=== PATIENT | female | born 1995 | race Caucasian/White ===

== ENCOUNTER 2020-03-23 16:25 | Emergency (ER) | payer OTHER, SELFPAY ==
--- NOTE | 2020-03-23 16:37 | ED.URI ---
HPI - URI/Sore Throat General Chief Complaint: Upper Respiratory Infection Stated Complaint: Sore throat Time Seen by Provider: 03/23/20 16:51 Source: patient and RN notes reviewed Mode of arrival: ambulatory Limitations: no limitations History of Present Illness HPI Narrative: 24-year-old female presents with concern for sore throat since Sunday. Reports low-grade fever. Denies nausea, headache, rhinorrhea, nasal congestion, cough, shortness of breath. Denies any sick contacts. MD elicited complaint: sore throat Related Data Home Medications Medication Instructions Recorded Confirmed norethindrone-e.estradiol-iron [Lo 1 tablet PO DAILY 03/23/20 03/23/20 Loestrin Fe] spironolactone 100 mg PO DAILY 03/23/20 03/23/20 Allergies Allergy/AdvReac Type Severity Reaction Status Date / Time No Known Allergies Allergy Verified 06/02/19 10:00 Review of Systems Review of Systems: Narrative: CONSTITUTIONAL: Denies malaise, chills, sweats. Reports low-grade fever. EYES: Denies visual changes, redness, or discharge. ENT: Reports rhinorrhea, congestion, sinus pain, otalgia. Reports sore throat. CARDIOVASCULAR: Denies chest pain, palpitations, or edema. RESPIRATORY: Denies cough or dyspnea. GASTROINTESTINAL: Denies abdominal pain, nausea, vomiting, diarrhea SKIN: Denies rash or itching. MUSCULOSKELETAL: Denies myalgia. NEUROLOGIC: Denies headache. All systems reviewed & are unremarkable except as noted in HPI and below PMFSH Comments At time of signature, agree with nursing past medical, surgical, social and family history. There is no relevant family history pertinent to the presenting complaint Exam Narrative: Exam Narrative: GENERAL: Well-appearing, well-nourished, and in no acute distress. HEAD: Normocephalic EYES: PERRLA, conjunctivae clear ENT: Nares clear, turbinates edematous and erythematous, clear discharge. Mucous membranes moist. TM pearly miller with dull light reflex bilaterally; no tragal tenderness. Oropharynx erythematous without lesions. Tonsils enlarged and without exudate, no drooling, no hoarseness, no trismus, uvula midline. NECK: Supple. No lymphadenopathy CHEST: Clear to auscultation, breath sounds equal. No wheezing, rhonchi, rales, or stridor. No respiratory distress, speaks in full sentences. HEART: Regular rate and rhythm. No murmur heard. SKIN: Warm, dry, no rash. NEURO: Alert and oriented x3. PSYCH: Normal mood and affect Course Course Emergency Course: Patient is aware of diagnosis, understands and agrees to treatment plan. Anticipatory guidance given. Patient agrees to follow-up as directed and is aware of reasons to seek care at the emergency department. Portions of this record may have been created with voice recognition software Vital Signs Vital signs: Reviewed. MDM - URI/Sore Throat MDM Narrative Medical decision making narrative: Differential diagnosis considered: Ontiveros virus, strep pharyngitis, allergic rhinitis, upper respiratory tract infection, sinusitis, rhinosinusitis, nasopharyngitis. viral pharyngitis, otitis media, otitis externa, pneumonia, bronchitis, viral cough syndrome, viral syndrome, and influenza. Exam findings show no acute concerns or changes; patient is non-toxic appearing and is in no distress. Patient is appropriate for outpatient treatment and follow-up. Lab Data Attestation: I reviewed the patient's lab results. Critical Care Time Critical Care Time Critical Care Time: No Discharge Plan Discharge Clinical Impression: Pharyngitis Qualifiers: Pharyngitis/tonsillitis etiology: unspecified etiology Qualified Code(s): J02.9 - Acute pharyngitis, unspecified Patient Disposition: Home, Self-Care Condition: Stable Instructions: Pharyngitis (ED), COVID-19: Slow the Coronavirus Spread (ED) Additional Instructions: An order has been sent to [facility] for COVID-19 testing. You will receive a phone call to schedule the testing. Results are usually
[2020-03-23 16:38] VITALS: BP 123/75; PULSE 89; RESP 16; TEMP 37.4; O2SAT 100
== END 2020-03-23 16:56 | disposition home or self-care (01) ==
PROVIDERS: Emergency Provider Nurse Practitioner; PCP Family Medicine
DX: J02.9 Acute pharyngitis, unspecified (principal); Z20.828 Contact with and (suspected) exposure to other viral communicable diseases
CPT/HCPCS: 87081; 87880; 99213; G0463

== ENCOUNTER 2021-05-16 08:14 | Emergency (ER) | payer OTHER, SELFPAY ==
[2021-05-16 08:23] VITALS: BP 110/79; PULSE 86; RESP 16; TEMP 37.1; O2SAT 100
--- NOTE | 2021-05-16 08:49 | ED.URI ---
HPI - URI/Sore Throat General Chief Complaint: Upper Respiratory Infection Stated Complaint: Sore throat,Ear Pain Time Seen by Provider: 05/16/21 08:42 Source: patient and RN notes reviewed Mode of arrival: ambulatory Limitations: no limitations History of Present Illness HPI Narrative: Patient presents today complaining of sore throat and left ear pain since yesterday evening. Denies any additional symptoms to include cough, rhinorrhea, congestion. She currently rates her pain 8/10 and has been taking Tylenol without relief. Pain increases with swallowing. MD elicited complaint: sore throat Related Data Home Medications Medication Instructions Recorded Confirmed norethindrone-e.estradiol-iron [Lo 1 tablet PO DAILY 03/23/20 05/16/21 Loestrin Fe] spironolactone 100 mg PO DAILY 03/23/20 05/16/21 tretinoin TOPICAL 05/16/21 05/16/21 Allergies Allergy/AdvReac Type Severity Reaction Status Date / Time No Known Allergies Allergy Verified 05/16/21 08:46 Review of Systems Review of Systems: CONSTITUTIONAL: Denies body aches, fever, chills, or sweats. EYES: Denies visual changes, redness, or discharge. ENT: Denies rhinorrhea, congestion. + Left ear pain, sore throat CARDIOVASCULAR: Denies chest pain, palpitations, or edema. RESPIRATORY: Denies cough or dyspnea. GASTROINTESTINAL: Denies abdominal pain, nausea, vomiting, or diarrhea. GENITOURINARY: Denies dysuria or hematuria. SKIN: Denies rash, itching, or wounds. MUSCULOSKELETAL: Denies back pain, joint pain, or myalgia. NEUROLOGIC: Denies headache, numbness, tingling, or weakness. PSYCH: Denies depression or anxiety. PMFSH Comments At time of signature, I have reviewed and agree with nursing past medical, surgical, social and family history unless otherwise noted. Please see nursing chart for further information. There is no relevant family history pertinent to the presenting complaint Exam Narrative: GENERAL: Well-appearing, well-nourished, and in no acute distress. HEAD: Normocephalic, atraumatic. EYES: EOMI. No redness or drainage. Conjunctivae normal. ENT: Mucous membranes pink and moist. Nares clear. No rhinorrhea. TMs normal bilaterally. Throat erythematous with mild edema. No exudate. Uvula midline. NECK: Normal AROM. Supple. No lymphadenopathy. CHEST: No respiratory distress. Clear to auscultation. HEART: Regular rate and rhythm. No murmur appreciated. Normal peripheral pulses. EXTREMITIES: Normal range of motion. No edema. SKIN: Warm, dry, no rash. Capillary refill normal. Normal skin turgor. NEURO: No focal deficits. Alert and oriented x3. Gait steady. PSYCH: Normal affect. No signs of depression or anxiety. Course Vital Signs Vital signs: Vital Signs Temperature 98.7 F 05/16/21 08:23 Pulse Rate 86 05/16/21 08:23 Respiratory Rate 16 05/16/21 08:23 Blood Pressure 110/79 05/16/21 08:23 Pulse Oximetry 100 05/16/21 08:23 Temperature 98.7 F 05/16/21 08:23 Pulse Rate 86 05/16/21 08:23 Respiratory Rate 16 05/16/21 08:23 Blood Pressure 110/79 05/16/21 08:23 Pulse Oximetry 100 05/16/21 08:23 Reviewed MDM - URI/Sore Throat Differential Diagnosis Differential diagnosis: Likely upper respiratory infection, otitis media, viral infection, pharyngitis and other (Strep throat) Lab Data Attestation: I reviewed the patient's lab results. Labs: Strep Screen Presumptive Negative *(Reference Range: Negative)* Strep Screen Presumptive Negative *(Reference Range: Negative)* Critical Care Time Critical Care Time Critical Care Time: No Discharge Plan Discharge Clinical Impression: Pharyngitis Qualifiers: Pharyngitis/tonsillitis etiology: unspecified etiology Qualified Code(s): J02.9 - Acute pharyngitis, unspecified Patient Disposition: Home, Self-Care Condition: Stable Instructions: Pharyngit
== END 2021-05-16 09:00 | disposition home or self-care (01) ==
PROVIDERS: Emergency Provider Nurse Practitioner
DX: J02.9 Acute pharyngitis, unspecified (principal)
CPT/HCPCS: 87081; 87880; 99213; G0463

== ENCOUNTER 2021-05-18 08:17 | Emergency (ER) | payer OTHER, SELFPAY ==
[2021-05-18 08:24] VITALS: BP 118/69; PULSE 89; RESP 16; TEMP 36.7; O2SAT 100
--- NOTE | 2021-05-18 08:56 | ED.URI ---
HPI - URI/Sore Throat General Chief Complaint: Upper Respiratory Infection Stated Complaint: ear pain/ sore throat Time Seen by Provider: 05/18/21 08:55 Source: patient and RN notes reviewed Mode of arrival: ambulatory Limitations: no limitations History of Present Illness HPI Narrative: Rona is a 25-year-old female patient who ambulated into the [facility]. Patient was seen here on 05/15/2021. A rapid strep was negative and a throat culture was sent off. The throat culture came back negative. Patient states she was having increased left ear and left throat pain since last night. She has been taking Motrin 600 mg 3 times daily. Patient states the pain is a 6 out of a 10. MD elicited complaint: sore throat Related Data Home Medications Medication Instructions Recorded Confirmed norethindrone-e.estradiol-iron [Lo 1 tablet PO DAILY 03/23/20 05/18/21 Loestrin Fe] spironolactone 100 mg PO DAILY 03/23/20 05/18/21 tretinoin 1 applic TOPICAL DAILY 05/16/21 05/18/21 Allergies Allergy/AdvReac Type Severity Reaction Status Date / Time No Known Allergies Allergy Verified 05/16/21 08:46 Review of Systems Review of Systems: CONSTITUTIONAL: Denies body aches, fever, chills, or sweats. EYES: Denies visual changes, redness, or discharge. ENT: +rhinorrhea, + congestion, + sore throat, + otalgia. CARDIOVASCULAR: Denies chest pain, palpitations, or edema. RESPIRATORY: Denies cough or dyspnea. GASTROINTESTINAL: Denies abdominal pain, nausea, vomiting, or diarrhea. GENITOURINARY: Denies dysuria or hematuria. SKIN: Denies rash, itching, or wounds. MUSCULOSKELETAL: Denies back pain, joint pain, or myalgia. NEUROLOGIC: Denies headache, numbness, tingling, or weakness. PSYCH: Denies depression or anxiety. All systems reviewed & are unremarkable except as noted in HPI and below PMFSH Comments At time of signature, I have reviewed and agree with nursing past medical, surgical, social and family history unless otherwise noted. Please see nursing chart for further information. There is no relevant family history pertinent to the presenting complaint Exam Narrative: GENERAL: Well-appearing, well-nourished, and in no acute distress. HEAD: Normocephalic, atraumatic. EYES: EOMI. No redness or drainage. Conjunctivae normal. ENT: Mucous membranes pink and moist. Nasal membranes pale . Bilateral tympanic membranes are bulging with fluid, no erythema noted. Posterior pharynx is erythemic with mild edema and no exudate. Left tonsil is 3-4+. Right tonsil is normal Throat normal. Uvula midline. NECK: Normal AROM. Supple. Left anterior cervical lymphadenopathy. CHEST: No respiratory distress. Clear to auscultation. MUSCULOSKELETAL: No bony tenderness. EXTREMITIES: Normal range of motion. No edema. SKIN: Warm, dry, no rash. Capillary refill normal. Normal skin turgor. NEURO: No focal deficits. Alert and oriented x3. Gait steady. PSYCH: Normal affect. No signs of depression or anxiety. Course Vital Signs Vital signs: Vital Signs Temperature 36.7 C 05/18/21 08:24 Pulse Rate 89 05/18/21 08:24 Respiratory Rate 16 05/18/21 08:24 Blood Pressure 118/69 05/18/21 08:24 Pulse Oximetry 100 05/18/21 08:24 Temperature 36.7 C 05/18/21 08:24 Pulse Rate 89 05/18/21 08:24 Respiratory Rate 16 05/18/21 08:24 Blood Pressure 118/69 05/18/21 08:24 Pulse Oximetry 100 05/18/21 08:24 Reviewed MDM - URI/Sore Throat MDM Narrative Medical decision making narrative: Patient's rapid strep is negative. Patient's throat culture from Sunday was also negative. Patient will be treated with prednisone to treat the inflammation. Patient will add Zyrtec daily. Patient will continue the ibuprofen 600 mg 3 times daily. Patient will follow up with her primary care physician in 3 to 5 days Differential Diagnosis Differential diagnosis: Likely upper respiratory infection, viral infection, bronchitis and pharyng
== END 2021-05-18 09:10 | disposition home or self-care (01) ==
PROVIDERS: Emergency Provider Nurse Practitioner Family
DX: J02.9 Acute pharyngitis, unspecified (principal)
CPT/HCPCS: 99213; G0463

== ENCOUNTER 2022-09-27 10:41 | Emergency (ER) | payer OTHER, SELFPAY ==
--- NOTE | 2022-09-27 10:47 | ED.URI ---
HPI - URI/Sore Throat General Chief Complaint: Upper Respiratory Infection Stated Complaint: sore throat Time Seen by Provider: 09/27/22 11:10 Source: patient Mode of arrival: ambulatory Limitations: no limitations History of Present Illness HPI Narrative: Susanne is a 26-year-old female patient presenting to clinic today with complaints of sore throat, sinus congestion, cough, and ear pain times 1 week. She was seen 5 days ago and was given prescription for amoxicillin. States that they did a COVID and a strep test and they were negative at that time. She has taken 5 days of amoxicillin. She denies any fever, chills, shortness of breath, or chest pain MD elicited complaint: sore throat, nasal congestion and other (Ear pain) Related Data Home Medications Medication Instructions Recorded Confirmed nitrofurantoin 09/27/22 09/27/22 monohydrate/macrocrystals 100 mg capsule vitamin with calcium tablet 09/27/22 09/27/22 no.72-iron 27 mg-folic acid 1 mg tablet (M- Plus) Allergies Allergy/AdvReac Type Severity Reaction Status Date / Time No Known Allergies Allergy Verified 09/27/22 10:58 Review of Systems Review of Systems: Pertinent positives per HPI. Patient denies any fever, chills, rash, headache, visual changes, dizziness, cough, shortness of breath, chest pain, palpitations, nausea, vomiting, diarrhea, constipation, abdominal pain, or any urinary issues. PMFSH Comments At the time of my signature, I reviewed and agree with the nursing past medical, surgical, social, and family history. There is no relevant family history pertinent to the patient complaint. Exam Narrative: General: Well-developed, well nourished, in no apparent distress Head: Normocephalic, atraumatic Eyes: Pupils equally round and reactive to light bilaterally, EOM intact, sclera and conjunctive clear, no discharge, lids normal Ears: TMs intact and clear, ear canals clear, no drainage, grossly hearing normal. Nose: Nares patent, no discharge, no inflammation, no sinus tenderness. Mouth: Oral pharynx without lesions or masses, good dentition, MMM. Neck: Supple, trachea midline, no enlargement of anterior or posterior cervical nodes, no thyroid masses or goiter palpable. Cardio: Regular rate and rhythm, s1 and s2 normal, no murmur appreciated. Resp: Clear to auscultation bilaterally, no rhonchi, rales, wheezing or rubs Course Course Emergency Course: Portions of this record may have been created with voice recognition software. Level of Care: Express Care Visit Vital Signs Vital signs: Vital Signs Temperature 37.1 C 09/27/22 11:01 Pulse Rate 116 H 09/27/22 11:01 Respiratory Rate 16 09/27/22 11:01 Blood Pressure 108/71 09/27/22 11:01 Pulse Oximetry 100 09/27/22 11:01 Oxygen Delivery Room Air 09/27/22 11:01 Temperature 37.1 C 09/27/22 11:01 Pulse Rate 116 H 09/27/22 11:01 Respiratory Rate 16 09/27/22 11:01 Blood Pressure 108/71 09/27/22 11:01 Pulse Oximetry 100 09/27/22 11:01 Oxygen Delivery Room Air 09/27/22 11:01 Vital signs reviewed MDM - URI/Sore Throat MDM Narrative Medical decision making narrative: At the time of visit patient is resting comfortably on the exam table. I suspect the patient has URI/pharyngitis. Will send in prescription for some prednisone to help with the sinus pressure and congestion. Supportive measures were discussed with the patient she voiced understanding discharge instructions and agrees to treatment plan. Differential Diagnosis Differential diagnosis: Likely upper respiratory infection, otitis media, sinusitis, viral infection, bronchitis, influenza, pharyngitis and other (COVID) Lab Data Labs: Lab Results 09/27/22 Range/Units 10:50 POC SARS CoV-2 Ag Negative (Negative) Strep Screen Presumptive Negative *(Reference Range: Negative)* Discharge Plan
[2022-09-27 11:01] VITALS: BP 108/71; PULSE 116; RESP 16; TEMP 37.1; O2SAT 100
== END 2022-09-27 11:20 | disposition home or self-care (01) ==
PROVIDERS: Emergency Provider Nurse Practitioner Family
DX: J02.9 Acute pharyngitis, unspecified (principal); Z20.822 Contact with and (suspected) exposure to COVID-19
CPT/HCPCS: 87081; 87426; 87880; 99213; C9803; G0463